=== PATIENT | male | born 1955 | race Caucasian/White ===

== ENCOUNTER 2018-02-22 06:39 | Emergency (ER) | payer OTHER, SELFPAY ==
[2018-02-22 06:42] VITALS: BP 130/58; PULSE 78; RESP 18; TEMP 36.4; O2SAT 99; BMI 41.8
--- NOTE | 2018-02-22 06:57 | DI.RAD.S_ITS ---
PROCEDURE: XR CHEST 1V INDICATIONS: CP, SOB TECHNIQUE: One view of the chest was acquired. COMPARISON: None. FINDINGS: Surgical changes and devices: None. Lungs and pleura: No pleural effusions or pneumothorax. Lungs are clear. Mediastinum: Mediastinal contours appear normal. Heart size is normal. Bones and chest wall: No suspicious bony lesions. Overlying soft tissues appear unremarkable. IMPRESSION: No acute cardiopulmonary disease. Dictated by: Elena Villeda M.D. on 02/22/2018 at 9:35 Approved by: Elena Villeda M.D. on 02/22/2018 at 9:35
--- NOTE | 2018-02-22 07:05 | ED_ITS ---
HPI - Chest Pain <Ren Anderson DO - Last Filed: 02/23/18 02:09> General Chief Complaint: Chest Pain Stated Complaint: LEFT CHEST PAIN FOR A WEEK Time Seen by Provider: 02/22/18 06:57 Source: patient and family Mode of arrival: ambulatory Limitations: no limitations History of Present Illness HPI narrative: 63-year-old male with history of diabetes, former smoker, and a PC presents to the emergency department with a chief complaint of 1 week of gradually worsening left-sided sharp, stabbing chest pain. 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 He states his pain is worse with a deep breath or motion of his torso. He also complains of shortness of breath. He denies associated symptoms such as dizziness, weakness or lightheadedness. MD complaint: chest pain Onset (ago): week(s) Duration: constant and progressively worsening Onset: during rest Pain location: left chest Severity: moderate Quality: sharp Pain radiation: none Relieving factors: remaining still Exacerbating factors: inspiration Context: recent travel Associated symptoms: dyspnea Treatments prior to arrival chest pain: none Related Data Allergies Allergy/AdvReac Type Severity Reaction Status Date / Time No Known Drug Allergies Allergy Verified 02/22/18 07:08 Review of Systems <Ren Anderson DO - Last Filed: 02/23/18 02:09> Review of Systems All systems reviewed & are unremarkable except as noted in HPI and below Constitutional Denies chills, Denies fever(s), Denies lethargy and Denies weakness Eyes Denies change in vision, Denies eye discharge, Denies irritation and Denies loss of vision ENT Ears, Nose, Mouth, and Throat: Denies change in voice, Denies neck pain and Denies sore throat Cardiovascular Reports chest pain, Denies irregular heart rhythm, Denies lightheadedness, Denies palpitations, Reports dyspnea, Denies dyspnea on exertion and Denies orthopnea Respiratory Denies cough, Reports dyspnea, Denies dyspnea on exertion and Denies wheezing Gastrointestinal Gastrointestinal: Denies abdominal pain, Denies change in bowel habits, Denies diarrhea, Denies nausea and Denies vomiting Genitourinary Denies hematuria, Denies flank pain, Denies urinary incontinence and Denies urinary urgency Musculoskeletal Denies neck pain Integumentary/Breasts Denies pruritus, Denies erythema, Denies rash and Denies wounds Neurologic Denies confusion, Denies loss of vision and Denies weakness Psychiatric Denies anxiety, Denies confusion, Denies depression, Denies homicidal ideation and Denies suicidal ideation Endocrine Denies palpitations Hematologic/Lymphatic Denies easy bruising Allergic/Immunologic Denies wheezing Exam <Ren Anderson, DO - Last Filed: 02/23/18 02:09> Narrative Exam Narrative: Pleasant 63M in no obvious distress Initial Vital Signs Initial Vital Signs: Vital Signs Temperature 97.5 F L 02/22/18 06:42 Pulse Rate 78 02/22/18 06:42 Respiratory Rate 18 02/22/18 06:42 Blood Pressure 130/58 H 02/22/18 06:42 Pulse Oximetry 99 02/22/18 06:42 Const General: cooperative and well developed Nutritional Appearance: well nourished Orientation: alert, awake, oriented x3 and not confused HENMT Head: normocephalic and atraumatic Ears: external ears normal and TM's normal bilaterally Nose: external nose normal and No nasal discharge Face and sinus: sinuses nontender, face symmetric, no sinus tenderness and No dry mucous membranes Mouth: oral mucosae normal and moist mucous membranes Teeth and gingiva: dentition normal Throat: tonsils normal and uvula midline Neck Neck: normal visual inspection, trachea midline, No lymphadenopathy, No midline deformity and No JVD Lymphatic: No lymphedema Chest Chest: localized rib tenderness with anteroposterior compression Resp Effort & Inspection: normal respiratory effort, able to speak in complete sentences, no respiratory distress and no use of accessory muscles Auscultation: clear to auscultation bilaterally, no rales, no rhonchi and no wheezes Cardio Rate: regular rate Rhythm: abnormal rhythm Heart Sounds: no click, no gallops, no murmurs and no rubs Pulses: normal peripheral pulses GI Inspection: normal to inspection Palpation: soft, no hepatosplenomegaly, No guarding, No pulsatile mass and No tender Auscultation: normal bowel sounds Back/Spine/Pelvis Back: No CVA tenderness Cervical Spine: cervical ROM normal and No pain with cervical ROM Thoracic/Lumbar Spine: thoracic and lumbar spine normal to inspection Skin General: no rashes or lesions noted, No jaundice and No petechiae Neuro General: alert, oriented x3, gait normal and no focal motor deficits Speech: speech normal Extrem General: full ROM, no clubbing, cyanosis or edema, no pedal edema and no calf tenderness <DO Nixon Rogers Last Filed: 02/22/18 08:25> Initial Vital Signs Initial Vital Signs: Vital Signs Temperature 97.5 F L 02/22/18 06:42 Pulse Rate 78 02/22/18 06:42 Respiratory Rate 18 02/22/18 06:42 Blood Pressure 130/58 H 02/22/18 06:42 Pulse Oximetry 99 02/22/18 06:42 Course <DO Nixon Damian Last Filed: 02/23/18 02:09> Orders Ordered: Discontinued Medications Aspirin (Aspirin Chew) 324 mg PO NOW ONE Stop: 02/22/18 06:58 Last Admin: 02/22/18 07:20 Dose: 324 mg Sodium Chloride (Normal Saline 0.9%) 1,000 mls @ 150 mls/hr IV CONT [facility] Last Admin: 02/22/18 07:20 Dose: 150 mls/hr Vital Signs - 8 hr 02/22/18 06:42 Temperature 97.5 F L Pulse Rate 78 Respiratory Rate 18 Blood Pressure 130/58 H Pulse Oximetry 99 <DO Nixon Rogers Last Filed: 02/22/18 08:25> Orders Ordered: Discontinued Medications Aspirin (Aspirin Chew) 324 mg PO NOW ONE Stop: 02/22/18 06:58 Last Admin: 02/22/18 07:20 Dose: 324 mg Sodium Chloride (Normal Saline 0.9%) 1,000 mls @ 150 mls/hr IV CONT [facility] Last Admin: 02/22/18 07:20 Dose: 150 mls/hr Vital Signs - 8 hr 02/22/18 06:42 Temperature 97.5 F L Pulse Rate 78 Respiratory Rate 18 Blood Pressure 130/58 H Pulse Oximetry 99 MDM - Chest Pain <DO Nixon Damian Last Filed: 02/23/18 02:09> Lab Data Result diagrams: 02/22/18 06:50 02/22/18 06:50 Lab Results 02/22/18 02/22/18 Range/Units 06:50 06:50 WBC 7.3 (4.5-11.0) X10^3/uL RBC 4.55 (4.5-5.9) X10^6/uL Hgb 14.4 (13.5-17.5) g/dL Hct 42.3 (41-53) % MCV 93.0 (80-100) fL MCH 31.7 (26-34) PG MCHC 34.0 (30-36) % RDW 15.0 H (11.6-14.8) % Plt Count 280 (150-400) X10^3/uL Neut % (Auto) 61.8 (50-75) % Lymph % (Auto) 18.0 L (25-40) % [place] % (Auto) 13.4 (3-14) % Eos % (Auto) 6.2 H (2-4) % Baso % (Auto) 0.6 (0-2) % Neut # (Auto) 4500 (8998-3957) /uL Sodium 143 (137-145) mmol/L Potassium 4.1 (3.4-5.1) mmol/L Chloride 105 (98-107) mmol/L Carbon Dioxide 26 (22-32) mmol/L BUN 19 (9-20) mg/dL Creatinine 1.10 (0.66-1.25) mg/dL Estimated GFR > 60.0 (>60) mL/min BUN/Creatinine Ratio 17.3 (6-22) Glucose 113 H (80-110) mg/dL Calcium 9.6 (8.4-10.2) mg/dL Total Bilirubin 0.8 (0.2-1.3) mg/dL AST 30 (17-59) IU/L ALT 33 (21-72) IU/L Alkaline Phosphatase 86 (38-126) U/L Total Creatine Kinase 131 (55-170) U/L Troponin I < 0.012 (0.01-0.034) ng/mL Total Protein 8.0 (6.3-8.2) g/dL Albumin 4.5 (3.5-5.0) g/dL Globulin 3.5 (1.7-4.1) g/dL Albumin/Globulin Ratio 1.3 (1.0-2.8) Lipase 115 (23-300) U/L ECG Data Attestation: I personally reviewed and interpreted this ECG as follows: Prior ECG tracings: not available for review Interpretation: NSR at 71 with PACs. No ischemia I vaginal when the on <Augie Dang DO - Last Filed: 02/22/18 08:25> Lab Data Attestation: I reviewed the patient's lab results. Lab Results 02/22/18 02/22/18 Range/Units 06:50 06:50 WBC 7.3 (4.5-11.0) X10^3/uL RBC 4.55 (4.5-5.9) X10^6/uL Hgb 14.4 (13.5-17.5) g/dL Hct 42.3 (41-53) % MCV 93.0 (80-100) fL MCH 31.7 (26-34) PG MCHC 34.0 (30-36) % RDW 15.0 H (11.6-14.8) % Plt Count 280 (150-400) X10^3/uL Neut % (Auto) 61.8 (50-75) % Lymph % (Auto) 18.0 L (25-40) % [place] % (Auto) 13.4 (3-14) % Eos % (Auto) 6.2 H (2-4) % Baso % (Auto) 0.6 (0-2) % Neut # (Auto) 4500 (8916-8363) /uL Sodium 143 (137-145) mmol/L Potassium 4.1 (3.4-5.1) mmol/L Chloride 105 (98-107) mmol/L Carbon Dioxide 26 (22-32) mmol/L BUN 19 (9-20) mg/dL Creatinine 1.10 (0.66-1.25) mg/dL Estimated GFR > 60.0 (>60) mL/min BUN/Creatinine Ratio 17.3 (6-22) Glucose 113 H (80-110) mg/dL Calcium 9.6 (8.4-10.2) mg/dL Total Bilirubin 0.8 (0.2-1.3) mg/dL AST 30 (17-59) IU/L ALT 33 (21-72) IU/L Alkaline Phosphatase 86 (38-126) U/L Total Creatine Kinase 131 (55-170) U/L Troponin I < 0.012 (0.01-0.034) ng/mL Total Protein 8.0 (6.3-8.2) g/dL Albumin 4.5 (3.5-5.0) g/dL Globulin 3.5 (1.7-4.1) g/dL Albumin/Globulin Ratio 1.3 (1.0-2.8) Lipase 115 (23-300) U/L Imaging Data Chest x-ray: Attestation: I personally reviewed and interpreted this imaging study as follows: My impression: Normal size heart No pneumothorax No focal consolidations CT scan - chest: Radiologist's impression: No pulmonary embolism Ground-glass opacities consistent with bronchiolitis MDM Narrative Medical decision making narrative: Received turned over from night provider. Reviewed patient's history and physical exam and lab reports and chest x-ray and EKG. I performed my own history and physical exam with the patient. CTA of the chest is pending at the time of turnover. This resulted in no evidence of pulmonary embolism. Upon further evaluation patient did have reproducible left-sided pinpoint chest pain with palpation. He also states that he has had symptoms for the past week which have been worsening over the past couple days. I feel that since he has reproducible left-sided pain for the past week, nonischemic EKG findings, negative troponin, that ACS is unlikely. We did discuss that no one is 0 risk for ACS but given his clinical scenario I felt that further workup was unnecessary currently. We also discussed his CTA results. I suspect a musculoskeletal etiology of his symptoms. He was given return precautions. He expressed understanding and agreement with plan. Discharge Plan Departure Patient Disposition: Home, Self-Care Clinical Impression: Atypical chest pain Discharge Date/Time: 02/22/18 08:37 Interventions: ED Discharge Assessment Last Done: 02/22/18 08:35 Instructions: DI for Atypical Chest Pain Activity Restrictions/Additional Instructions: Recommend that you follow up with your primary care doctor in the next week. Return to the emergency department for any new or worsening symptoms ED Cosign/Signout <Ren Anderson DO - Last Filed: 02/23/18 02:09> Cosign ED Attending Maggy Attestation: I was immediately available in the department for consultation. Documentation has been reviewed. I agree with assessment and plan.
[2018-02-22 07:08] LABS: Add Manual Diff / Slide Review NO; Basophils Percent Auto 0.6 % (0-2); Eosinophils Percent Auto 6.2 % (2-4); Hematocrit 42.3 % (41-53); Hemoglobin 14.4 g/dL (13.5-17.5); Mean Corpuscular Hemoglobin 31.7 PG (26-34); Monocytes Percent Auto 13.4 % (3-14); Neutrophils Absolute Auto 4500 /uL (3000-5900); Neutrophils Percent Auto 61.8 % (50-75); Platelet Count 280 X10^3/uL (150-400); Red Blood Cell Count 4.55 X10^6/uL (4.5-5.9); White Blood Cell Count 7.3 X10^3/uL (4.5-11.0)
[2018-02-22 07:16] LABS: Alanine Aminotransferase 33 IU/L (21-72); Albumin 4.5 g/dL (3.5-5.0); Albumin Globulin Ratio 1.3 (1.0-2.8); Alkaline Phosphatase 86 U/L (38-126); Aspartate Aminotransferase 30 IU/L (17-59); BUN Creatinine Ratio 17.3 (6-22); Bilirubin Total 0.8 mg/dL (0.2-1.3); Blood Urea Nitrogen 19 mg/dL (9-20); Calcium 9.6 mg/dL (8.4-10.2); Carbon Dioxide 26 mmol/L (22-32); Chloride 105 mmol/L (98-107); Creatine Kinase 131 U/L (55-170); Estimated Glomerular Filt Rate > 60.0 mL/min (>60); Globulin 3.5 g/dL (1.7-4.1); Glucose 113 mg/dL (80-110); HEMOLYSIS < 15 (0-50); Lipase 115 U/L (23-300); Potassium 4.1 mmol/L (3.4-5.1); Sodium 143 mmol/L (137-145)
[2018-02-22] MEDS: SODIUM CHLORIDE 0.9% 1,000 ML 150 ML IV (07:20)
[2018-02-22] MEDS: ASPIRIN 81 MG TAB 324 MG PO (07:20)
[2018-02-22 07:29] LABS: Troponin I < 0.012 ng/mL (0.01-0.034)
--- NOTE | 2018-02-22 07:41 | DI.CT.S_ITS ---
PROCEDURE: CT ANGIO CHEST PE PROTOCOL INDICATIONS: 63 year-old man with cheast pain left,shortness of breath, frequent travel TECHNIQUE: After the administration of intravenous contrast, 2 mm thick sections acquired from the pulmonary apices to the posterior costophrenic angles. 3-dimensional maximum intensity projection (MIP) coronal and sagittal reformats were then acquired through the thorax. For radiation dose reduction, the following was used: automated exposure control, adjustment of mA and/or kV according to patient size. COMPARISON: [facility], CR, XR CHEST 1V, 02/22/2018, 7:19. FINDINGS: Image quality: Excellent. Pulmonary arteries: Pulmonary arteries are normal in size, and demonstrate no intraluminal filling defects to suggest central pulmonary embolism. Lungs and pleura: Mild perihilar groundglass infiltrates bilaterally. No focal consolidations. Left basilar atelectasis No pleural effusions or pneumothorax. Mild bronchial wall thickening bilaterally. Central and peripheral airways are patent. Mediastinum: Heart size is normal, without pericardial effusion. No mediastinal or hilar adenopathy. Thoracic aorta is normal in caliber and enhancement. Esophagus is normal in caliber, without hiatal hernia. Bones and chest wall: No suspicious bony lesions. Ribs and thoracic spine appear intact throughout. Thyroid gland is normal. No axillary or supraclavicular adenopathy. Abdomen: There are post surgical changes at the gastroesophageal junction. Visualized upper abdominal solid organs appear normal in the early arterial phase of enhancement. IMPRESSION: 1. No evidence for central pulmonary embolism. 2. Mild bronchial wall thickening and mild perihilar ground glass infiltrates, suggesting bronchitis or bronchiolitis. Recommend clinical correlation. 3. Moderate size hiatal hernia and post surgical changes at the gastroesophageal junction. Dictated by: Elena Villeda M.D. on 02/22/2018 at 8:06 Approved by: Elena Villeda M.D. on 02/22/2018 at 8:12
[2018-02-22 08:00] VITALS: BP 116/69; PULSE 77; RESP 15; O2SAT 100
== END 2018-02-22 08:37 | disposition home or self-care (01) ==
PROVIDERS: Emergency Medicine; Emergency Provider Emergency Medicine
DX: R07.89 Other chest pain (principal)
CPT/HCPCS: 36591; 71045; 71275; 80053; 82550; 82553; 83690; 84484; 85025; 93005; 93041; 99283; 99285; Q9967